=== PATIENT | male | born 1960 | race African-American/Black ===

== ENCOUNTER 2017-03-16 20:44 | Emergency (ER) | payer OTHER ==
[~2017-03-16] VITALS: Ht 177.8 cm; Wt 98.8 kg
[~2017-03-16 20:44] MED LIST: APRE1TAB3 PO; ZITH250T PO
[2017-03-16 20:51] VITALS: BP 141/76; PULSE 62; RESP 12; TEMP 97.8; O2SAT 97
[2017-03-16 21:06] VITALS: BP 141/76; PULSE 62; RESP 18; TEMP 97.8; O2SAT 98
[2017-03-16] MEDS ORDERED: APRE1TAB3 (21:06)
[2017-03-16] MEDS ORDERED: LORazepam 2 MG/ML VIAL IV PUSH ONE (21:30)
[2017-03-16] MEDS ORDERED: SODIUM CHLOR 0.9% 1000 ML INJ 1,000 ML IV SCH (21:33)
--- NOTE | 2017-03-16 21:40 | PD ---
HPI Chief Complaint: GI Complaint Time Seen by Provider: 21:20 Travel History International Travel<30 days: No Contact w/Intl Traveler<30days: No Traveled to known affect area: No History of Present Illness HPI The patient is a 56-year-old male that complains of bilateral lower quadrant pain since Wednesday evening. The patient thought he may have had a low-grade fever on Wednesday but none since. He denies any diarrhea, vomiting but does have nausea. He still has his gallbladder but he has had an appendectomy and right inguinal hernia repair. PFSH Past Medical History Hx Anticoagulant Therapy: No Asthma: Yes (CHILDHOOD) Blood Disorders: No Anxiety: Yes Heart Rhythm Problems: No Cancer: No Cardiovascular Problems: Yes (CHEST PAIN) High Cholesterol: Yes Chemotherapy: No Chest Pain: Yes (2008, STRESSTEST NEGATIVE THEN) Congestive Heart Failure: No COPD: No Diabetes: No Diminished Hearing: No GERD: Yes Hypertension: No Immune Disorder: Yes (psorasis) Musculoskeletal: No Neurologic: No Immunizations Current: Yes Myocardial Infarction: No Pneumonia: Yes (BRONCHIAL) Radiation Therapy: No Sleep Apnea: No Thyroid Disease: No Tetanus Vaccination: > 5 Years Influenza Vaccination: No Past Surgical History Appendectomy: Yes Coronary Artery Bypass Graft: No Genitourinary Surgery: Yes (TESTICULAR) Thoracic Surgery: Yes Other Surgery: Yes (appendix, testicular ) Social History Alcohol Use: Yes (OCCASIONALLY) Tobacco Use: No Substance Use: No (not recently in last year) Allergies-Medications (Allergen,Severity, Reaction): Coded Allergies: Ampicillin (Verified Allergy, Severe, HIVES, 03/16/17) Reported Meds & Prescriptions Reported Meds & Active Scripts Active Lortab (Hydrocodone-Acetaminophen) 5-325 Mg Tab 1 Tab PO Q6H PRN Phenergan (Promethazine HCl) 25 Mg Tab 25 Mg PO Q6H PRN Cipro (Ciprofloxacin HCl) 500 Mg Tab 500 Mg PO BID 10 Days Flagyl (Metronidazole) 500 Mg Tab 500 Mg PO TID 10 Days Reported Otezla (Apremilast) 30 Mg Tab Review of Systems Except as stated in HPI: all other systems reviewed are Neg Physical Exam Narrative GENERAL: The patient is alert, oriented 3 in moderate apparent distress with his bilateral lower quadrant abdominal pain. His blood pressure is 121/76 but the rest the vital signs are normal. SKIN: Focused skin assessment warm/dry. HEAD: Atraumatic. Normocephalic. EYES: Pupils equal and round. No scleral icterus. No injection or drainage. ENT: No nasal bleeding or discharge. Mucous membranes pink and moist. NECK: Trachea midline. No JVD. CARDIOVASCULAR: Regular rate and rhythm. No murmur appreciated. RESPIRATORY: No accessory muscle use. Clear to auscultation. Breath sounds equal bilaterally. GASTROINTESTINAL: Abdomen soft, with tenderness to direct palpation in the bilateral lower quadrants, nondistended. Hepatic and splenic margins not palpable. No guarding or rebound is present. MUSCULOSKELETAL: No obvious deformities. No clubbing. No cyanosis. No edema. NEUROLOGICAL: Awake and alert. No obvious cranial nerve deficits. Motor grossly within normal limits. Normal speech. PSYCHIATRIC: Appropriate mood and affect; insight and judgment normal. Data Data Last Documented VS Vital Signs Date Time Temp Pulse Resp B/P Pulse Ox O2 Delivery O2 Flow Rate FiO2 03/16/17 22:51 63 18 136/76 97 Room Air 03/16/17 21:06 97.8 Orders Lorazepam Inj (Ativan Inj) (03/16/17 21:30) Complete Blood Count With Diff (03/16/17 21:33) Comprehensive Metabolic Panel (03/16/17 21:33) Lipase (03/16/17 21:33) Urinalysis - C+S If Indicated (03/16/17 21:33) Ct Abd/Pel W Iv Contrast(Rout) (03/16/17 21:33) Iv Access Insert/Monitor (03/16/17 21:33) Ecg Monitoring (03/16/17 21:33) Oximetry (03/16/17 21:33) Morphine Inj (Morphine Inj) (03/16/17 21:45) Ondansetron Inj (Zofran Inj) (03/16/17 21:45) Sodium Chlor 0.9% 1000 Ml Inj (Ns 1000 M (03/16/17 21:33) Sodium Chloride 0.9% Flush (Ns Flush) (03/16/17 21:45) Iohexol 350 Inj (Omnipaque 350 Inj) (03/16/17 23:11) Labs Laboratory Tests Test 03/16/17 03/16/17 21:55 21:57 White Blood Count 6.1 TH/MM3 Red Blood Count 4.73 MIL/MM3 Hemoglobin 14.1 GM/DL Hematocrit 42.7 % Mean Corpuscular Volume 90.4 FL Mean Corpuscular Hemoglobin 29.9 PG Mean Corpuscular Hemoglobin 33.1 % Concent Red Cell Distribution Width 12.5 % Platelet Count 154 TH/MM3 Mean Platelet Volume 11.2 FL Neutrophils (%) (Auto) 54.7 % Lymphocytes (%) (Auto) 31.7 % Monocytes (%) (Auto) 9.0 % Eosinophils (%) (Auto) 3.8 % Basophils (%) (Auto) 0.8 % Neutrophils # (Auto) 3.4 TH/MM3 Lymphocytes # (Auto) 1.9 TH/MM3 Monocytes # (Auto) 0.6 TH/MM3 Eosinophils # (Auto) 0.2 TH/MM3 Basophils # (Auto) 0.0 TH/MM3 CBC Comment DIFF FINAL Differential Comment Sodium Level 143 MEQ/L Potassium Level 4.1 MEQ/L Chloride Level 107 MEQ/L Carbon Dioxide Level 28.9 MEQ/L Anion Gap 7 MEQ/L Blood Urea Nitrogen 18 MG/DL Creatinine 1.30 MG/DL Estimat Glomerular Filtration 69 ML/MIN Rate Random Glucose 97 MG/DL Calcium Level 9.2 MG/DL Total Bilirubin 0.3 MG/DL Aspartate Amino Transf 27 U/L (AST/SGOT) Alanine Aminotransferase 26 U/L (ALT/SGPT) Alkaline Phosphatase 99 U/L Total Protein 7.4 GM/DL Albumin 3.6 GM/DL Lipase 158 U/L Urine Color YELLOW Urine Turbidity CLEAR Urine pH 6.0 Urine Specific [place] 1.027 Urine Protein TRACE mg/dL Urine Glucose (UA) NEG mg/dL Urine Ketones TRACE mg/dL Urine Occult Blood NEG Urine Nitrite NEG Urine Bilirubin NEG Urine Leukocyte Esterase NEG Urine RBC 0-3 /hpf Urine WBC 0-2 /hpf Urine Squamous Epithelial 0-5 /hpf Cells Urine Mucus MOD /lpf Microscopic Urinalysis Comment CULT NOT INDICATED MDM Medical Decision Making Medical Screen Exam Complete: Yes Emergency Medical Condition: Yes Medical Record Reviewed: Yes Interpretation(s) The CBC is normal. The complete metabolic profile shows a GFR of 69 but is otherwise normal. The lipase is normal. The urine shows specific gravity 1.027 with trace ketones but is otherwise normal and culture is not indicated. Differential Diagnosis Colitis, diverticulitis, gastroenteritis, electrolyte disorder, dehydration, renal insufficiency Narrative Course It is now 1112 and the patient has only intermittent pain and no nausea. Diagnosis Primary Impression: Ileitis, terminal Additional Impression: Liver lesion Additional Instructions: As we discussed, do not drink alcohol with Flagyl. Do not drink alcohol or drive with the Phenergan or Lortab 5 either. All of with your primary care physician. Remember about the lesion we discussed on your liver, you need to have an MRI repeated through your primary care physician about this. Med/Other Pt SpecificInfo: Prescription(s) given Scripts Hydrocodone-Acetaminophen (Lortab)5-325 Mg Tab1 Tab PO Q6H PRN (PAIN) #15 TAB Ref 0 Prov:Juan Nicole MD 03/16/17 Promethazine (Phenergan)25 Mg Tab25 Mg PO Q6H PRN (Nausea/Vomiting) #33 TAB Ref 0 Prov:Juan Nicole MD 03/16/17 Ciprofloxacin (Cipro)500 Mg Crb046 Mg PO BID 10 Days Ref 0 Prov:Juan Nicole MD 03/16/17 Metronidazole (Flagyl)500 Mg [id number] Mg PO TID 10 Days Ref 0 Prov:Juan Nicole MD 03/16/17 Disposition: 01 DISCHARGE HOME Condition: Stable Juan Nicole MD March 16, 2017 21:40
[2017-03-16] MEDS ORDERED: MORPHINE SULFATE 4 MG/ML INJ IV PUSH ONE (21:45)
[2017-03-16] MEDS ORDERED: ONDANSETRON HCL 4 MG/2 ML VIAL IVP ONE (21:45)
[2017-03-16] MEDS ORDERED: SODIUM CHLORIDE 0.9% FLUSH 10 ML FLUSH IV FLUSH PRN (21:45)
[2017-03-16 21:55] VITALS: RESP 18; O2SAT 98
[2017-03-16 22:10] LABS: AUTOMATED NEUTROPHIL # 3.4 TH/MM3 (1.8-7.7); BASOPHIL % 0.8 % (0.0-2.0); EOSINOPHIL # 0.2 TH/MM3 (0-0.4); EOSINOPHIL % 3.8 % (0.0-4.0); HEMATOCRIT 42.7 % (39.0-51.0); HEMO FLAGS DIFF FINAL; LYMPH % 31.7 % (9.0-44.0); LYMPHOCYTE # 1.9 TH/MM3 (1.0-4.8); MEAN CELL VOLUME 90.4 FL (80.0-100.0); MEAN CORPUSCULAR HEMOGLOBIN 29.9 PG (27.0-34.0); MEAN CORPUSCULAR HGB CONC 33.1 % (32.0-36.0); NEUT % 54.7 % (16.0-70.0); PLATELET COUNT 154 TH/MM3 (150-450); RED BLOOD COUNT 4.73 MIL/MM3 (4.50-5.90); RED CELL DISTRIBUTION WIDTH 12.5 % (11.6-17.2); WHITE BLOOD COUNT 6.1 TH/MM3 (4.0-11.0)
[2017-03-16 22:32] LABS: CHLORIDE 107 MEQ/L (98-107); POTASSIUM 4.1 MEQ/L (3.5-5.1); SODIUM (NA) 143 MEQ/L (136-145)
[2017-03-16 22:37] LABS: ANION GAP 7 MEQ/L (5-15); BICARBONATE 28.9 MEQ/L (21.0-32.0); BLOOD UREA NITROGEN 18 MG/DL (7-18)
[2017-03-16 22:39] LABS: ALT (GPT) 26 U/L (12-78); AST (GOT) 27 U/L (15-37)
[2017-03-16 22:40] LABS: GLOMERULAR FILTRATION RATE 69 ML/MIN (>89)
[2017-03-16 22:41] LABS: TOTAL BILIRUBIN ADULT 0.3 MG/DL (0.2-1.0)
[2017-03-16 22:42] LABS: ALKALINE PHOSPHATASE 99 U/L (45-117)
[2017-03-16 22:47] LABS: BLOOD, URINE NEG (NEG); GLUCOSE,URINE NEG (NEG); KETONE, URINE TRACE mg/dL (NEG); NITRITE,URINE NEG (NEG)
[2017-03-16 22:51] VITALS: BP 136/76; PULSE 63; RESP 18; O2SAT 97
[2017-03-16 22:52] LABS: URINE COLOR YELLOW (YELLW/STRAW)
[2017-03-16 22:53] LABS: COMMENT (UR) CULT NOT INDICATED; CULTURE IF INDICATED CULT NOT INDICATED; MUCUS URINE MOD /lpf (OCC); RBC, URINE 0-3 /hpf (0-3); SQUAMOUS EPITHELIAL CELL URINE 0-5 /hpf (0-5); WBC, URINE 0-2 /hpf (0-5)
[2017-03-16] MEDS ORDERED: IOHEXOL 350 MG/ML 10 ML VIAL (for RAD DIAG) IV ONE (23:11)
--- NOTE | 2017-03-16 23:17 | RADHPO ---
EXAM DATE/TIME: 03/16/2017 22:13 [facility] COMPARISON: No previous studies available for comparison. INDICATIONS : Right lower quadrant pain. IV CONTRAST: 100 cc Omnipaque 350 (iohexol) IV ORAL CONTRAST: No oral contrast ingested. RADIATION DOSE: 17.04 CTDIvol (mGy) MEDICAL HISTORY : Gastroesophageal reflux disease. SURGICAL HISTORY : Appendectomy. Testicular. ENCOUNTER: Initial ACUITY: 1 day PAIN SCALE: 7/10 LOCATION: Right lower quadrant TECHNIQUE: Volumetric scanning of the abdomen and pelvis was performed. Using automated exposure control and ad justment of the mA and/or kV according to patient size, radiation dose was kept as low as reasonably achievable to obtain optimal diagnostic quality images. FINDINGS: LOWER LUNGS: A tiny calcified granuloma within the left lung base. Main lung bases are clear. LIVER: There is a low density lesion seen involving segment 7. This is 3.4 cm in size. Hounsfield units are 37. The remaining liver is unremarkable. Portal vein is patent. Gallbladder is decompressed. No stone s observed. No ductal dilatation. SPLEEN: Normal size without lesion. PANCREAS: Within normal limits. KIDNEYS: Normal in size and shape. There is no mass, stone or hydronephrosis. ADRENAL GLANDS: Within normal limits. VASCULAR: There is no aortic aneurysm. BOWEL/MESENTERY: There is mild wall thickening and mild stranding of the adjacent mesentery involving the terminal ile um. A few tiny ileocolic lymph nodes are also noted. The remaining bowel structures are unremarkable. No free air or free fluid. Stomach is normal. ABDOMINAL WALL: Within normal limits. RETROPERITONEUM: There is no lymphadenopathy. BLADDER: No wall thickening or mass. REPRODUCTIVE: Within normal limits. INGUINAL: There is no lymphadenopathy or hernia. MUSCULOSKELETAL: Within normal limits for patient age. CONCLUSION: 1. Mild inflammatory process involving the terminal ileum. No abscess, perforation, or obstruction. 2. 3.4 cm nonspecific lesion involving the right lobe of the liver. CT characteristics are not consis tent with a simple cyst. An outpatient followup MRI of the abdomen is suggested. Pedro Lind Jr., MD on March 16, 2017 at 23:12 Board Certified Radiologist. This report was verified electronically.
[2017-03-16] MEDS ORDERED: PROM25TA5 PO (23:56)
[2017-03-16] MEDS ORDERED: HYDR-3533 PO (23:56)
[2017-03-16] MEDS ORDERED: METR-1 PO (23:56)
[2017-03-16] MEDS ORDERED: CIPR-9 PO (23:56)
[2017-03-17 00:05] VITALS: BP 134/74; PULSE 62; RESP 18; O2SAT 97
[2017-03-17] MEDS ORDERED: CIPROFLOXACIN 500 MG TAB PO ONE (00:15)
[2017-03-17] MEDS ORDERED: metroNIDAZOLE 500 MG TAB PO ONE (00:15)
[2017-03-17] MEDS ORDERED: PROMETHAZINE HCL 25 MG TAB PO ONE (00:30)
[2017-03-17] MEDS ORDERED: ACETAMINOPHEN/HYDROcodone 325 MG/5 MG TAB PO ONE (00:30)
== END 2017-03-17 00:42 | disposition home or self-care (01) ==
LOC: PHED 20:44
DX: K50.00 Crohn's disease of small intestine without complications (principal); K76.9 Liver disease, unspecified; E78.00 Pure hypercholesterolemia, unspecified; K21.9 Gastro-esophageal reflux disease without esophagitis
CPT/HCPCS: 74177; 80053; 81001; 83690; 85025; 96361; 96374; 96375; 99284; J2270; J2405; J7030; Q0169; Q9967

== ENCOUNTER 2017-12-25 17:46 | Emergency (ER) | payer OTHER ==
[~2017-12-25] VITALS: Ht 177.8 cm; Wt 98.7 kg
[~2017-12-25 17:46] MED LIST changes: +APRE1TAB3; -APRE1TAB3 PO; +CIPR-9 PO; +HYDR-3533 PO; +METR-1 PO; +PROM25TA5 PO; -ZITH250T PO
[2017-12-25 18:12] VITALS: BP 108/69; PULSE 63; RESP 16; TEMP 98.7; O2SAT 97
--- NOTE | 2017-12-25 19:52 | PD ---
HPI Chief Complaint: Abdominal Pain Time Seen by Provider: 19:52 Travel History International Travel<30 days: No Contact w/Intl Traveler<30days: No Traveled to known affect area: No History of Present Illness HPI 57-year-old male came to the emergency room with history of diarrhea alternating with constipation and nausea and vomiting for past 4 weeks. Patient says that he has seen his primary care who has given him Bentyl for IBS. Patient was in the emergency room one year ago when apparently he was diagnosed with IBS and the primary care has continued with the diagnosis. However patient says that the Bentyl is not helping. His last episode of diarrhea was yesterday. Today he has not had any diarrhea or vomiting. Vital signs are stable. He has slight abdominal discomfort. That is more generalized. It gets worse just before he has a bowel movement. The stool is mostly watery when he has diarrhea and nonbloody. Patient had a colonoscopy 2 years ago and at that time he was told everything was fine. PFSH Past Medical History Narrative Medical List of his past medical, surgical, social and family history is reviewed from the nursing note. Hx Anticoagulant Therapy: No Asthma: Yes (CHILDHOOD) Blood Disorders: No Anxiety: Yes Heart Rhythm Problems: No Cancer: No Cardiovascular Problems: Yes (CHEST PAIN) High Cholesterol: Yes Chemotherapy: No Chest Pain: Yes (2008, STRESSTEST NEGATIVE THEN) Congestive Heart Failure: No COPD: No Diabetes: No Diminished Hearing: No GERD: Yes Hypertension: No Immune Disorder: Yes (psorasis) Musculoskeletal: No Neurologic: No Immunizations Current: Yes Myocardial Infarction: No Pneumonia: Yes (BRONCHIAL) Radiation Therapy: No Sleep Apnea: No Thyroid Disease: No Past Surgical History Appendectomy: Yes Coronary Artery Bypass Graft: No Genitourinary Surgery: Yes (TESTICULAR) Thoracic Surgery: Yes Other Surgery: Yes (appendix, testicular ) Social History Alcohol Use: Yes (OCCASIONALLY) Tobacco Use: No Substance Use: No (not recently in last year) Allergies-Medications (Allergen,Severity, Reaction): Coded Allergies: ampicillin (Unverified Allergy, Severe, HIVES, 12/25/17) penicillin G (Verified Allergy, Intermediate, hives, 12/25/17) Comments List of his allergies reviewed from the nursing note. Reported Meds & Prescriptions Reported Meds & Active Scripts Active Zofran Odt (Ondansetron Odt) 4 Mg Tab 4 Mg SL Q6HR PRN Narrative Medication List of his home medications reviewed from the nursing note. Review of Systems Except as stated in HPI: all other systems reviewed are Neg Gastrointestinal: Positive: Nausea, Vomiting, Diarrhea Physical Exam Narrative GENERAL: Awake, alert, no obvious distress, anxious SKIN: Focused skin assessment warm/dry. HEAD: Atraumatic. Normocephalic. EYES: Pupils equal and round. No scleral icterus. No injection or drainage. ENT: No nasal bleeding or discharge. Mucous membranes pink and moist. NECK: Trachea midline. No JVD. CARDIOVASCULAR: Regular rate and rhythm. No murmur appreciated. RESPIRATORY: No accessory muscle use. Clear to auscultation. Breath sounds equal bilaterally. GASTROINTESTINAL: Abdomen soft, non-tender, nondistended. Hepatic and splenic margins not palpable. MUSCULOSKELETAL: No obvious deformities. No clubbing. No cyanosis. No edema. NEUROLOGICAL: Awake and alert. No obvious cranial nerve deficits. Motor grossly within normal limits. Normal speech. PSYCHIATRIC: Appropriate mood and affect; insight and judgment normal. Data Data Last Documented VS Vital Signs Date Time Temp Pulse Resp B/P (MAP) Pulse Ox O2 Delivery O2 Flow Rate FiO2 12/25/17 21:33 99 12/25/17 19:55 66 18 Room Air 12/25/17 18:12 98.7 Orders Orders Complete Blood Count With Diff (12/25/17 20:02) Comprehensive Metabolic Panel (12/25/17 20:02) Ct Abd/Pel W/O Iv Contrast (12/25/17 ) Ed Discharge Order (12/25/17 21:04) Labs Laboratory Tests Test 12/25/17 20:30 White Blood Count 3.7 TH/MM3 Red Blood Count 4.60 MIL/MM3 Hemoglobin 13.8 GM/DL Hematocrit 40.3 % Mean Corpuscular Volume 87.5 FL Mean Corpuscular Hemoglobin 29.9 PG Mean Corpuscular Hemoglobin Concent 34.1 % Red Cell Distribution Width 13.0 % Platelet Count 148 TH/MM3 Mean Platelet Volume 10.1 FL Neutrophils (%) (Auto) 64.3 % Lymphocytes (%) (Auto) 22.9 % Monocytes (%) (Auto) 10.0 % Eosinophils (%) (Auto) 2.2 % Basophils (%) (Auto) 0.6 % Neutrophils # (Auto) 2.3 TH/MM3 Lymphocytes # (Auto) 0.8 TH/MM3 Monocytes # (Auto) 0.4 TH/MM3 Eosinophils # (Auto) 0.1 TH/MM3 Basophils # (Auto) 0.0 TH/MM3 CBC Comment DIFF FINAL Differential Comment Blood Urea Nitrogen 16 MG/DL Creatinine 1.20 MG/DL Random Glucose 86 MG/DL Total Protein 7.1 GM/DL Albumin 3.5 GM/DL Calcium Level 8.6 MG/DL Alkaline Phosphatase 93 U/L Aspartate Amino Transf (AST/SGOT) 31 U/L Alanine Aminotransferase (ALT/SGPT) 25 U/L Total Bilirubin 0.4 MG/DL Sodium Level 139 MEQ/L Potassium Level 3.8 MEQ/L Chloride Level 105 MEQ/L Carbon Dioxide Level 28.3 MEQ/L Anion Gap 6 MEQ/L Estimat Glomerular Filtration Rate 75 ML/MIN MDM Medical Decision Making Medical Screen Exam Complete: Yes Emergency Medical Condition: Yes Medical Record Reviewed: Yes Differential Diagnosis Inflammatory bowel disease, colitis Narrative Course A 20 6 PM I looked at his medical record from about one year ago. There was a CAT scan done which showed terminal ileitis and he was asked to get an outpatient MRI. This finding does not coincide with IBS. I went back to discuss this with the patient that if he ever had this addressed by his primary care. He said that he had given this discharge instruction to his primary care at which point apparently his primary care had told him the diagnosis was IBS and gave him Bentyl. He has not had an MRI or a GI follow-up dressing this. I have ordered blood test and a repeat CAT scan today. Awaiting for the results of those tests. 9:02 PM the test results of back. Patient has some leukopenia but otherwise test results are within normal limits. CT scan shows a hyperechoic mass in the liver which was similar to the one seen one year ago. MRI is recommended. I' ll discharge him home. Procedures EKG Prior to Arrival: No Diagnosis Primary Impression: Chronic diarrhea Additional Impressions: Vomiting Qualified Codes: R11.11 - Vomiting without nausea Liver mass Referrals: Primary Care Physician Additional Instructions: Please return to the ER if condition worsens or any other new concerns. Otherwise follow-up with your primary care and have him refer you to a GI specialist. You do need an MRI of her abdomen as an outpatient which can be ordered by her primary care. Med/Other Pt SpecificInfo: Prescription(s) given Scripts Ondansetron Odt (Zofran Odt) 4 Mg Tab 4 MG SL Q6HR Y for Nausea/Vomiting, #15 TAB 0 Refills Prov: Ezequiel Apodaca MD 12/25/17 Disposition: 01 DISCHARGE HOME Condition: Stable Ezequiel Apodaca MD Dec 25, 2017 19:52
[2017-12-25 19:55] VITALS: BP 110/70; PULSE 66; RESP 18; O2SAT 97
--- NOTE | 2017-12-25 20:32 | RADRPT ---
EXAM DATE/TIME: 12/25/2017 20:13 [facility] COMPARISON: CT ABDOMEN & PELVIS W CONTRAST, March 16, 2017, 22:13. INDICATIONS : Abdomen pain, nausea, vomiting, bloating, for 1 week ORAL CONTRAST: No oral contrast ingested. RADIATION DOSE: 19.02 CTDIvol (mGy) MEDICAL HISTORY : Cardiovascular disease. Gastroesophageal reflux disease. SURGICAL HISTORY : Appendectomy. ENCOUNTER: Initial ACUITY: 1 week PAIN SCALE: 7/10 LOCATION: diffuse abdomen TECHNIQUE: Volumetric scanning of the abdomen and pelvis was performed. Using automated exposure control and ad justment of the mA and/or kV according to patient size, radiation dose was kept as low as reasonably achievable to obtain optimal diagnostic quality images. DICOM format image data is available electro nically for review and comparison. FINDINGS: LOWER LUNGS: The visualized lower lungs are clear. LIVER: There is a stable low-density liver mass at the liver dome measuring 3.2 x 2.7 cm. Hounsfield measure ments are in the mid 30s. There is no dilation of the biliary tree. No calcified gallstones. SPLEEN: Normal size without lesion. PANCREAS: Within normal limits. KIDNEYS: Normal in size and shape. There is no mass, stone, or hydronephrosis. ADRENAL GLANDS: Within normal limits. VASCULAR: There is no aortic aneurysm. There is mild atherosclerotic disease. BOWEL/MESENTERY: The stomach, small bowel, and colon demonstrate no acute abnormality. There is no free intraperitone al air or fluid. ABDOMINAL WALL: Within normal limits. RETROPERITONEUM: There is no lymphadenopathy. BLADDER: No wall thickening or mass. REPRODUCTIVE: Within normal limits. INGUINAL: There is no lymphadenopathy or hernia. MUSCULOSKELETAL: There are mild degenerative changes of the lumbar spine. CONCLUSION: 1. No acute finding is identified within the abdomen or pelvis to explain the clinical symptoms. 2. There is a stable 3.2 cm liver lesion which does not meet criteria for a cyst. As described previo usly, this should undergo further characterization with liver protocol MRI with and without intraveno us contrast on an outpatient elective basis. Mahesh Vallecillo MD on December 25, 2017 at 20:27 Board Certified Radiologist. This report was verified electronically.
[2017-12-25 20:42] LABS: AUTOMATED NEUTROPHIL # 2.3 TH/MM3 (1.8-7.7); BASOPHIL % 0.6 % (0.0-2.0); EOSINOPHIL # 0.1 TH/MM3 (0-0.4); EOSINOPHIL % 2.2 % (0.0-4.0); HEMATOCRIT 40.3 % (39.0-51.0); HEMOGLOBIN 13.8 GM/DL (13.0-17.0); LYMPH % 22.9 % (9.0-44.0); LYMPHOCYTE # 0.8 TH/MM3 (1.0-4.8); MEAN CELL VOLUME 87.5 FL (80.0-100.0); MEAN CORPUSCULAR HEMOGLOBIN 29.9 PG (27.0-34.0); MEAN CORPUSCULAR HGB CONC 34.1 % (32.0-36.0); MEAN PLATELET VOLUME 10.1 FL (7.0-11.0); MONOCYTE # 0.4 TH/MM3 (0-0.9); NEUT % 64.3 % (16.0-70.0); PLATELET COUNT 148 TH/MM3 (150-450); WHITE BLOOD COUNT 3.7 TH/MM3 (4.0-11.0)
[2017-12-25 20:48] LABS: CHLORIDE 105 MEQ/L (98-107); SODIUM (NA) 139 MEQ/L (136-145)
[2017-12-25 20:51] LABS: CALCIUM 8.6 MG/DL (8.5-10.1)
[2017-12-25 20:52] LABS: ALBUMIN 3.5 GM/DL (3.4-5.0); BICARBONATE 28.3 MEQ/L (21.0-32.0); BLOOD UREA NITROGEN 16 MG/DL (7-18); GLUCOSE,RANDOM 86 MG/DL (74-106)
[2017-12-25 20:55] LABS: ALT (GPT) 25 U/L (12-78); AST (GOT) 31 U/L (15-37); GLOMERULAR FILTRATION RATE 75 ML/MIN (>89)
[2017-12-25 20:57] LABS: TOTAL BILIRUBIN ADULT 0.4 MG/DL (0.2-1.0); TOTAL PROTEIN 7.1 GM/DL (6.4-8.2)
[2017-12-25 20:58] LABS: ALKALINE PHOSPHATASE 93 U/L (45-117)
[2017-12-25] MEDS ORDERED: ZOFR4TAB3 SL (21:04)
== END 2017-12-25 21:36 | disposition home or self-care (01) ==
LOC: PHED 17:46
DX: K52.9 Noninfective gastroenteritis and colitis, unspecified (principal); R11.2 Nausea with vomiting, unspecified; R16.0 Hepatomegaly, not elsewhere classified; K21.9 Gastro-esophageal reflux disease without esophagitis; Z88.0 Allergy status to penicillin
CPT/HCPCS: 74176; 80053; 85025; 99283

== ENCOUNTER 2018-10-28 20:31 | Observation (INO) ==
[2018-10-28] MEDS ORDERED: Sod Chloride 0.9% Inj 1,000 ML IV.SIG SCH (20:45)
--- NOTE | 2018-10-28 20:52 | ED ---
HPI General Chief Complaint: Altered Mental Status Stated Complaint: Altered mental status Time Seen by Provider: 10/28/18 20:33 Source: patient and EMS Mode of arrival: EMS Limitations: no limitations History of Present Illness HPI narrative: Patient is a 57-year-old male presenting to emerge department for evaluation of lightheadedness, near syncope. Patient was at a [place] [employer] party when he appeared to have a syncopal episode. When EMS arrived on scene, patient's GCS was 15. Patient reports feeling nauseated and lightheaded, he denies any chest pain, shortness of breath, abdominal pain. He reports a nonproductive cough for a few days but denies any fevers, chills. Patient denies any significant past medical history, he has had no alcohol intake this evening, he denies any illicit drug use. Symptom onset was sudden, symptoms are moderate, unknown exacerbating symptoms. MD complaint: Reports decreased responsiveness Onset (ago): minute(s) Timing confirmed by: spouse Severity: moderate Consistency of symptoms: unknown Associated symptoms: Reports nausea/vomiting and syncope Related Data Home Medications Medication Instructions Recorded Confirmed azithromycin [Zithromax Z-Rick] 250 mg PO DAILY 10/28/18 10/28/18 benzonatate [Tessalon Perles] 100 mg PO TID PRN 10/28/18 10/28/18 Allergies Allergy/AdvReac Type Severity Reaction Status Date / Time ampicillin Allergy Severe HIVES Verified 10/28/18 20:46 penicillin G Allergy Intermediate hives Verified 12/25/17 19:54 Review of Systems ROS: all other systems reviewed are negative [facility] Medical History Medical History Appendicitis (Acute) Arthritis (Acute) Psoriasiform eczema (Acute) Psoriasis (Acute) Surgical History Surgical History History of testicular surgery (Acute) Social History Social History Second Hand Smoke Exposure: No Smoking Status: Never smoker How Often Do You Have a Drink Containing Alcohol: 4 or more times a week Recent Travel in [facility] within the Last 8 Weeks: No Recent Out of Country Travel within the Last 8 Weeks: No Immunization History Tetanus Immunization: Unsure Exam Narrative Exam Narrative: GENERAL: Well-developed, well-nourished, alert -Slov[place] male. Presenting in no acute distress. SKIN: Focused skin assessment warm/dry. HEAD: Atraumatic. Normocephalic. EYES: Pupils equal and round. No scleral icterus. No injection or drainage. ENT: No nasal bleeding or discharge. Mucous membranes pink and moist. NECK: Trachea midline. No JVD. CARDIOVASCULAR: Bradycardic. No murmur appreciated. RESPIRATORY: No accessory muscle use. Clear to auscultation. Breath sounds equal bilaterally. GASTROINTESTINAL: Abdomen soft, non-tender, nondistended. Hepatic and splenic margins not palpable. MUSCULOSKELETAL: No obvious deformities. No clubbing. No cyanosis. No edema. NEUROLOGICAL: Awake and alert, oriented x3. No obvious cranial nerve deficits. Motor grossly within normal limits. Normal speech. PSYCHIATRIC: Appropriate mood and flat affect; insight and judgment normal. Course Initial Documented Vital Signs Temperature 97.8 F 10/28/18 20:35 Pulse Rate 64 10/28/18 20:35 Respiratory Rate 16 10/28/18 20:35 Pulse Oximetry 98 10/28/18 20:35 Last Documented Vital Signs Temperature 97.8 F 10/28/18 20:35 Pulse Rate 61 10/28/18 20:41 Respiratory Rate 16 10/28/18 20:41 Blood Pressure 164/81 H 10/28/18 20:41 Pulse Oximetry 99 10/28/18 20:48 Medical Decision Making MDM Narrative Medical decision making narrative: Presented for evaluation after near syncopal episode. Labs and imaging ordered and pending. 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 Initial EKG shows sinus bradycardia with a rate of 56, this was reviewed by my attending physician. Labs reviewed, troponin 0 0.05, labs are otherwise unremarkable. CT scan of the brain shows no acute findings, chest x-ray with no acute disease. states that patient was just diagnosed with high cholesterol, he is not currently on any medications for this. This time patient will be admitted for observation to trend cardiac enzymes, further workup for near syncope. Discussed with my attending physician. Discussed with Dr. Zarco who accepted admit, admit orders placed. Patient's vital signs remained stable in the emergency department. Medical Screen Exam Complete: Yes Emergency Medical Condition: Yes Differential Diagnosis Differential Diagnosis: Cardiac arrhythmia versus metabolic abnormality versus TIA versus seizure versus other Medical Records Medical records reviewed: Yes I reviewed the patient's medical records. Lab Data Lab results reviewed: Yes I reviewed the patient's lab results. Result diagrams: 10/28/18 21:38 10/28/18 20:40 Lab Results 10/28/18 10/28/18 Range/Units 20:40 21:38 WBC 7.2 (4.0-11.0) th/mm3 RBC 4.33 L (4.50-5.90) mil/mm3 Hgb 13.6 (13.0-17.0) gm/dL Hct 39.5 (39.0-51.0) % MCV 91.1 (80.0-100.0) fL MCH 31.3 (27.0-34.0) pg MCHC 34.4 (32.0-36.0) % RDW 13.7 (11.6-17.2) % Plt Count 145 L (150-450) th/mm3 MPV 11.0 (7.0-11.0) fL Neut % (Auto) 67.2 (16.0-70.0) % Lymph % (Auto) 20.9 (9.0-44.0) % [place] % (Auto) 9.4 H (0.0-8.0) % Eos % (Auto) 1.9 (0.0-4.0) % Baso % (Auto) 0.6 (0.0-2.0) % Neut # (Auto) 4.8 (1.8-7.7) th/mm3 Lymph # (Auto) 1.5 (1.0-4.8) th/mm3 [place] # (Auto) 0.7 (0.0-0.9) th/mm3 Eos # (Auto) 0.1 (0.0-0.4) th/mm3 Baso # (Auto) 0.0 (0.0-0.2) th/mm3 WBC Differential . Differential Comment Auto diff final Sodium 140 (136-145) meq/L Potassium 3.8 (3.5-5.1) meq/L Chloride 107 (98-107) meq/L Carbon Dioxide 25.5 (21.0-32.0) meq/L Anion Gap 8 (5-15) meq/L BUN 15 (7-18) mg/dL Creatinine 1.32 H (0.60-1.30) mg/dL Estimated GFR 68 L (>89) mL/min Random Glucose 84 (74-106) mg/dL Calcium 9.1 (8.5-10.1) mg/dL Magnesium 2.1 (1.5-2.5) mg/dL Total Bilirubin 0.4 (0.2-1.0) mg/dL AST 34 (15-37) U/L ALT 44 (12-78) U/L Alkaline Phosphatase 97 (45-117) U/L Total Creatine Kinase 292 (39-308) U/L Troponin I 0.05 (0.02-0.05) ng/mL Total Protein 8.1 (6.4-8.2) g/dL Albumin 4.1 (3.4-5.0) g/dL Imaging Data Radiologist's impression: Chest X-Ray 10/28/18 20:40 CONCLUSION: No evidence of acute pulmonary disease. Head CT 10/28/18 20:40 CONCLUSION: 1. No acute intracranial abnormality. 2. Left maxillary sinus mucosal disease. . Discharge Plan Discharge Disposition Patient Disposition: ED Admit(ED Internal Use Only) Discharge Condition Condition: Stable Discharge Order Discharge Orders: ED Use Only Admit Order (Routine); Ordered 10/28/18 Ordered By: Delfina Bahena Discharge Details Diagnosis: Near syncope, Bradycardia Physicians Team ED Provider: Vicky Ascencio ED Midlevel Provider: Delfnia Bahena Primary Care Provider: Cirilo Sal Attending Provider: Lan Zarco Status ED Status: Admitted Observation Patient
--- NOTE | 2018-10-28 21:03 | CT ---
EXAM DATE: 10/28/2018 9:00 PM EST AGE/SEX: 57 years / Male INDICATIONS: Altered mental status. CLINICAL DATA: This is the patient's initial encounter. Patient reports that signs and symptoms have been present for 1 day and indicates a pain score of 0/10. MEDICAL/SURGICAL HISTORY: None. Appendectomy. Testicular surgery RADIATION DOSE: 56.35 CTDI (mGy) COMPARISON: No prior exams available for comparison. TECHNIQUE: CT of the head without contrast. Using automated exposure control and adjustment of the mA and/or kV according to patient size, radiation dose was kept as low as reasonably achievable to ob tain optimal diagnostic quality images. DICOM format image data is available electronically for revi ew and comparison. FINDINGS: Cerebrum: The ventricles are normal for age. No evidence of midline shift, mass lesion, hemorrhage o r acute infarction. No extraaxial fluid collections are seen. Posterior Fossa: The cerebellum and brainstem are intact. The 4th ventricle is midline. The cerebe llopontine angle is unremarkable. Extracranial: The visualized portion of the orbits is intact. Mucosal retention cyst in the inferior left maxillary sinus. Skull: The calvaria is intact. No evidence of skull fracture. CONCLUSION: 1. No acute intracranial abnormality. 2. Left maxillary sinus mucosal disease. . Electronically signed by: Brian Perez MD Board Certified Radiologist 10/28/2018 9:02 PM ZAID Abbasi
[2018-10-28 21:19] LABS: Alanine Aminotransferase 44 U/L (12-78); Albumin 4.1 g/dL (3.4-5.0); Anion Gap 8 meq/L (5-15); Aspartate Aminotransferase 34 U/L (15-37); Blood Urea Nitrogen 15 mg/dL (7-18); Calcium 9.1 mg/dL (8.5-10.1); Carbon Dioxide 25.5 meq/L (21.0-32.0); Chloride 107 meq/L (98-107); Glomerular Filtration Rate 68 mL/min (>89); Glucose,Random 84 mg/dL (74-106); Magnesium 2.1 mg/dL (1.5-2.5); Potassium 3.8 meq/L (3.5-5.1); Sodium 140 meq/L (136-145)
[2018-10-28 21:23] LABS: Alkaline Phosphatase 97 U/L (45-117); Creatine Kinase 292 U/L (39-308); Total Protein 8.1 g/dL (6.4-8.2); Troponin I 0.05 ng/mL (0.02-0.05)
--- NOTE | 2018-10-28 21:24 | XR ---
EXAM DATE: 10/28/2018 9:20 PM EST AGE/SEX: 57 years / Male INDICATIONS: Syncope. CLINICAL DATA: This is the patient's initial encounter. Patient reports that signs and symptoms have been present for 1 day and indicates a pain score of 0/10. MEDICAL/SURGICAL HISTORY: None. Appendectomy. COMPARISON: [facility], CHEST SINGLE AP, 03/17/2015. . FINDINGS: A single AP view of the chest demonstrates the lungs to be symmetrically aerated without evidence of mass, infiltrate or effusion. The cardiomediastinal contours are unremarkable. Osseous structures a re intact. CONCLUSION: No evidence of acute pulmonary disease. Electronically signed by: Mahesh Juarez MD Board Certified Radiologist 10/28/2018 9:23 PM EST
[2018-10-28 22:00] LABS: Baso % (Auto) 0.6 % (0.0-2.0); Eos # (Auto) 0.1 th/mm3 (0.0-0.4); Eos % (Auto) 1.9 % (0.0-4.0); Hematocrit 39.5 % (39.0-51.0); Hemoglobin 13.6 gm/dL (13.0-17.0); Lymph # (Auto) 1.5 th/mm3 (1.0-4.8); Lymph % (Auto) 20.9 % (9.0-44.0); Mean Corpuscular HGB Conc 34.4 % (32.0-36.0); Mean Corpuscular Hemoglobin 31.3 pg (27.0-34.0); Mean Corpuscular Volume 91.1 fL (80.0-100.0); Mono # (Auto) 0.7 th/mm3 (0.0-0.9); Mono % (Auto) 9.4 % (0.0-8.0); Neut # (Auto) 4.8 th/mm3 (1.8-7.7); Neut % (Auto) 67.2 % (16.0-70.0); Platelet Count 145 th/mm3 (150-450); Red Blood Count 4.33 mil/mm3 (4.50-5.90); Red Cell Distribution Width 13.7 % (11.6-17.2); White Blood Count 7.2 th/mm3 (4.0-11.0)
[2018-10-28 23:15] LABS: Bilirubin,Urine Negative (Negative); Clarity,Urine Clear (Clear); Color,Urine Yellow (Yellw/Straw); Glucose,Urine (UA) Negative (Negative); Leukocyte Esterase,Urine Negative (Negative); Mucus,Urine Few /lpf (Occasional); Nitrite,Urine Negative (Negative); Specific Gravity,Urine 1.018 (1.002-1.035)
[2018-10-29 06:10] LABS: Anion Gap 8 meq/L (5-15); Blood Urea Nitrogen 12 mg/dL (7-18); Calcium 8.7 mg/dL (8.5-10.1); Carbon Dioxide 26.5 meq/L (21.0-32.0); Chloride 109 meq/L (98-107); Glomerular Filtration Rate Greater Than 89 mL/min (>89); Glucose,Random 98 mg/dL (74-106); Potassium 3.5 meq/L (3.5-5.1); Sodium 143 meq/L (136-145)
[2018-10-29 06:14] LABS: Troponin I 0.04 ng/mL (0.02-0.05)
--- NOTE | 2018-10-29 08:26 | US ---
EXAM DATE: 10/29/2018 7:48 AM EST AGE/SEX: 57 years / Male INDICATIONS: Syncope. CLINICAL DATA: This is the patient's initial encounter. Patient reports that signs and symptoms have been present for 1 day and indicates a pain score of 0/10. MEDICAL/SURGICAL HISTORY: . Arthritis. Appendicitis. Eczema. Psoriasis. . Testicular surgery. COMPARISON: No prior exams available for comparison. VELOCITY PARAMETERS: ICA/CCA Ratio: Right 1.0 , Left 1.0 ICA: Right 88.7 cm/sec, Left 95.2 cm/sec CCA: Right 91.9 cm/sec, Left 94.3 cm/sec ECA: Right 101.6 cm/sec, Left 77.4 cm/sec Vertebral: Right 47.8 cm/sec antegrade, Left 49.0 cm/sec antegrade FINDINGS: Right Carotid: No significant plaque is visualized.The waveforms are within normal limits. Left Carotid: No significant plaque is visualized. The waveforms are within normal limits. Other: None. CONCLUSION: Negative carotid ultrasound examination. Electronically signed by: Mahesh Knowles MD Board Certified Radiologist 10/29/2018 8:24 AM EST
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
[2018-10-29] MEDS ORDERED: [UNRECOGNIZED DRUG - OTHER] TOPICAL SCH (13:00)
[2018-10-29] MEDS ORDERED: Benzonatate 100 MG Capsule PO PRN (16:10)
[2018-10-29] MEDS: Loratadine 10 MG Tablet PO SCH (16:56)
[2018-10-29 17:23] LABS: Folate 8.4 ng/mL (3.1-17.5); Thyroid Stimulating Hormone 3.03 uIU/mL (0.358-3.740)
[2018-10-29] MEDS ORDERED: Gadobutrol PF 10 MMOL/10 ML Vial (for RAD) IV.SIG ONE (17:31)
--- NOTE | 2018-10-29 17:44 | MR ---
EXAM DATE: 10/29/2018 5:37 PM EST AGE/SEX: 57 years / Male INDICATIONS: Confusion. Syncope. CLINICAL DATA: This is the patient's initial encounter. Patient reports that signs and symptoms have been present for 1 day and indicates a pain score of 0/10. MEDICAL/SURGICAL HISTORY: Hypercholesterolemia. Appendectomy. COMPARISON: No prior exams available for comparison. TECHNIQUE: Multiplanar, multisequence examination of the brain was performed without and with 9 ml Ga davist (gadobutrol) contrast as a single exam dose. FINDINGS: Cerebrum: The ventricles are normal for age. No evidence of midline shift, mass lesion, hemorrhage or acute infarction. No extraaxial fluid collections are seen. The pituitary gland and suprasellar cistern are normal in configuration. White Matter: No significant signal abnormalities are seen in the white matter. Posterior Fossa: The cerebellum and brainstem are intact. The 4th ventricle is midline. The cerebel lopontine angle is unremarkable. The cerebellar tonsils are normal in position. Diffusion Imaging: No focal areas of restricted diffusion are seen. No evidence of acute infarction . Extracranial: The visualized portions of the orbits are unremarkable. Mucus retention cyst formation is noted within the left maxillary sinus. Post Contrast: There is evidence of a venous angioma within the right frontal subcortical white amadou er. CONCLUSION: 1. No acute infarct, acute hemorrhage, midline shift or extra-axial fluid collection. 2. Venous angioma within the right frontal subcortical white matter. 3. Mucus retention cyst formation within left maxillary sinus. Electronically signed by: Norman Guaman MD Board Certified Radiologist 10/29/2018 5:43 PM EST
--- NOTE | 2018-10-29 22:48 | MG ---
cc: Vel Sellers MD EEG RECORD NUMBER: [id number] DESCRIPTION: 7-8 Hz posterior rhythm 20-40 microvolts followed by generalized slowing. Transition into stage I and stage II sleep characterized by spindle activity followed by brief arousals of normal wakefulness. Limited driving with photic stimulation. Single lead EKG showing sinus rhythm. INTERPRETATION: Normal awake sleep state. Clinical correlation. Vel Sellers MD MG/ct , 10:10 PM , 10:15 PM
--- NOTE | 2018-10-30 01:51 | ECHRPT ---
Indication: SYNCOPE CONCLUSIONS The left ventricular systolic function is normal with an estimated ejection fraction in the range of 60-65%. There is trace tricuspid valve regurgitation. Trivial pulmonary valve regurgitation. BP: / HR: Rhythm: MEASUREMENTS (Male / Female) Normal Values Technical Quality: 2D ECHO LV Diastolic Diameter PLAX 4.7 cm 4.2 - 5.9 / 3.9 - 5.3 cm LV Systolic Diameter PLAX 3.3 cm IVS Diastolic Thickness 1.1 cm 0.6 - 1.0 / 0.6 - 0.9 cm LVPW Diastolic Thickness 1.0 cm 0.6 - 1.0 / 0.6 - 0.9 cm LV Relative Wall Thickness 0.4 RV Internal Dim ED PLAX 2.8 cm LVOT Diameter 1.9 cm Aortic Root Diameter 2.3 cm LA Systolic Diameter LX 3.1 cm 3.0 - 4.0 / 2.7 - 3.8 cm M-MODE Aortic Root Diameter MM 2.9 cm LA Systolic Diameter MM 4.0 cm LA Ao Ratio MM 1.4 AV Cusp Separation MM 1.9 cm DOPPLER AV Peak Velocity 165.0 cm/s AV Peak Gradient 10.9 mmHg LVOT Peak Velocity 119.0 cm/s LVOT Peak Gradient 5.7 mmHg AV Area Cont Eq pk 2.0 cm Mitral E Point Velocity 61.2 cm/s Mitral A Point Velocity 35.5 cm/s Mitral E to A Ratio 1.7 LV E' Lateral Velocity 10.0 cm/s Mitral E to LV E' Lateral Ratio 6.1 LV E' Septal Velocity 7.7 cm/s Mitral E to LV E' Septal Ratio 7.9 TR Peak Velocity 205.0 cm/s TR Peak Gradient 16.8 mmHg Right Atrial Pressure 10.0 mmHg Pulmonary Artery Systolic Pressu 26.8 mmHg Right Ventricular Systolic Press 26.8 mmHg PV Peak Velocity 114.0 cm/s PV Peak Gradient 5.2 mmHg FINDINGS LEFT VENTRICLE Normal left ventricular size. Wall thickness is normal. The left ventricular systolic function is normal with an estimated ejection fraction in the range of 60-65%. RIGHT VENTRICLE Grossly normal LEFT ATRIUM The left atrial size is mildly dilated. RIGHT ATRIUM The right atrial size is mildly dilated. ATRIAL SEPTUM Normal atrial septal thickness. MITRAL VALVE Structurally normal mitral valve. No mitral valve regurgitation. No mitral valve stenosis. AORTIC VALVE Trileaflet aortic valve. Calcification of the left coronary cusp. No aortic valve stenosis. No aortic valve regurgitation. TRICUSPID VALVE Structurally normal tricuspid valve. The estimated pulmonary arterial pressure is 27 mmHg. There is trace tricuspid valve regurgitation. PULMONARY VALVE The pulmonary valve is not well visualized. Trivial pulmonary valve regurgitation. PERICARDIUM No pericardial effusion. Pedrito Marmolejo DO (Electronically Signed) Final Date:30 October 2018 01:50
--- NOTE | 2018-10-30 08:53 | P.CONNEU ---
History of Present Illness Service: Neurology Primary Care Provider: Cirilo Sal MD Chief Complaint: decreased reponsiveness History of Present Illness: 57-year-old male admitted for altered mental status. At a libertarian with the spouse states he did not feel well felt like something was coming down over him. Tram weak noticed him to have fluttering of his eyes with some confusion. No tonic-clonic activity no bowel bladder incontinence. He does not remember any focal weakness vision loss vertigo or chest pain he states it lasted about a minute. He states he had some small episodes lasting for a couple seconds prior to this. No further episodes since. Has been feeling well denies any headache any head or neck trauma. No history of concussion INTER[employer] infection febrile seizures or any family history of seizures. Denies any illicit drug use or any sleep deprivation. Mildly hypertensive on admission afebrile blood pressure is improved. Mild bradycardia heart rate 50s. No leukocytosis chemistries overall within normal limits. 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 - Medical History Medical History: Medical History (Last Reviewed 10/28/18 @ 22:59 by SHANKAR Arrington) Appendicitis Arthritis Psoriasiform eczema Psoriasis - Surgical History Surgical History: Surgical History (Last Reviewed 10/28/18 @ 22:59 by SHANKAR Arrington) History of testicular surgery - Tobacco History Second Hand Smoke Exposure: No Smoking Status: Never smoker - Alcohol History How Often Do You Have a Drink Containing Alcohol: 4 or more times a week - Substance Use History Substance History: No History of Abuse - Travel History Recent Travel in the [place] Within the Last 8 Weeks: No Recent Travel Out of the Country Within the Last 8 Weeks: No - Immunization History Tetanus Immunization: Unsure Medications and Allergies Active Medications: Active Medications Benzonatate (Tessalon Perles) 200 mg PO Q8H PRN PRN Reason: COUGH Betamethasone Dipropionate (Diprosone 0.05% Cream) 1 applicatio TOPICAL TID [facility] Last Admin: 10/29/18 17:00 Dose: 1 applicatio Loratadine (Claritin) 10 mg PO DAILY [facility] Last Admin: 10/29/18 16:56 Dose: 10 mg Pt Own Med: (Apremilast 30mg) 0 each PO DAILY TINO Sodium Chloride (Ns Flush) 2 ml IV.FLUSH PRN PRN PRN Reason: FLUSH AFTER USING IV ACCESS Allergies Allergy/AdvReac Type Severity Reaction Status Date / Time ampicillin Allergy Severe HIVES Verified 10/28/18 20:46 penicillin G Allergy Intermediate hives Verified 12/25/17 19:54 Home Medications Medication Instructions Recorded Confirmed Type azithromycin [Zithromax Z-Rick] 250 mg PO DAILY 10/28/18 10/28/18 History benzonatate [Tessalon Perles] 100 mg PO TID PRN 10/28/18 10/28/18 History apremilast [Otezla] 30 mg PO DAILY 10/29/18 10/29/18 History clobetasol 1 applic TOPICAL TID 10/29/18 10/29/18 History Exam Vital signs: Vital Signs 10/29/18 12:05 10/29/18 12:30 10/29/18 16:25 Temperature 98 F Pulse Rate 56 L 55 L 61 Respiratory Rate 16 Blood Pressure 130/70 Pulse Oximetry 10/29/18 16:49 10/29/18 19:42 10/29/18 20:00 Temperature 97.9 F 96.4 F L Pulse Rate 56 L 60 Respiratory Rate 16 20 Blood Pressure 136/69 126/66 Pulse Oximetry 99 98 10/29/18 23:59 10/30/18 04:00 10/30/18 08:00 Temperature 97.7 F 97.8 F 97.9 F Pulse Rate 52 L 56 L 53 L Respiratory Rate 18 16 12 Blood Pressure 142/80 H 140/66 146/76 H Pulse Oximetry 94 L 98 93 L Intake & Output 10/29/18 10/30/18 10/30/18 18:59 06:59 18:59 Intake Total 560 / 560 Output Total 1000 / 1000 Balance -1000 / -1000 560 / 560 Weight 108.2 kg Intake: Oral 560 / 560 Output: Urine 1000 / 1000 Other: # Voids 3 Date of Last Bowel Movement 10/29/18 # Bowel Movements 0 Weight On Admission 228 kg Narrative: GENERAL: in NAD, laying in bed looks well SKIN: Warm and dry. HEAD: Atraumatic. Normocephalic. EYES: Pupils equal and round. No scleral icterus. ENT: No nasal bleeding or discharge. Mucous membranes pink and moist. NECK: Trachea midline. No JVD. CARDIOVASCULAR: Regular rate and rhythm. RESPIRATORY: No accessory muscle use. MUSCULOSKELETAL: Extremities without clubbing, cyanosis, or edema. No obvious deformities. NEUROLOGICAL: Awake and alert. No aphasia, oriented x3 fluent articulate, No facial asymmetry, OU 3-2mm, eomi, VFF, No drift, Motor grossly within normal limits. Five out of 5 muscle strength in the arms and legs. No neglect PSYCHIATRIC: Appropriate mood and affect; insight and judgment normal. - Constitutional no acute distress - Routine HEENT Exam Head: Present: normocephalic Eye: Present: EOMI Results - Labs CBC & Chem 7: 10/28/18 21:38 10/29/18 04:56 Labs: Laboratory Results - last 24 hr 10/29/18 10/29/18 04:56 19:21 Ammonia 23 Vitamin B12 356 Folate 8.4 TSH 3.030 - Imaging Impressions Head MRI 10/29/18 00:00 CONCLUSION: 1. No acute infarct, acute hemorrhage, midline shift or extra-axial fluid collection. 2. Venous angioma within the right frontal subcortical white matter. 3. Mucus retention cyst formation within left maxillary sinus. Review/Management - Diagnosis (1) Spell of altered consciousness Code(s): R40.4 - Transient alteration of awareness Status: Acute Current Visit: Yes (2) Near syncope Code(s): R55 - Syncope and collapse Status: Acute Current Visit: Yes - Review/Management Plan: New onset recurrent episodes with presyncopal symptomatology Etiologies would include cardiac arrhythmia with cerebral hypoperfusion versus new onset seizure eye flutter is somewhat suspicious for seizure activity MRI brain scan normal with the exception of a venous angioma likely congenital Carotid ultrasound negative for any vaso-occlusive disease EEG negative for any seizure activity Recommendation Discussed medications seizures will hold off for now Consider event monitor further cardiac evaluation in versus outpatient If recurrent episode he can get a long-term ambulatory EEG through our office Otherwise can be discharged from neurologic standpoint follow-up in the outpatient setting if any recurrent episode return to the ER/contact our office for urgent follow- up No driving, operating any heavy machinery or dangerous machinery, swimming alone for at least 6 months of being seizure, spell free.
[2018-10-30] MEDS ORDERED: APREMILAST 30 MG PO SCH (09:00)
[2018-10-30] MEDS: Loratadine 10 MG Tablet PO SCH (10:32)
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
[2018-10-30 12:31] VITALS: BP 139/75; PULSE 56; RESP 16; TEMP 98; O2SAT 97
--- NOTE | 2018-10-31 00:47 | ECG ---
Date Performed: 10/28/2018 Time Performed: 21:59:51 PTAGE: 57 years EKG: SINUS BRADYCARDIA BORDERLINE ECG PREVIOUS TRACING : 03/18/2015 01.31 Since the previous tracing, no significant change noted DOCTOR: Pedrito Marmolejo Interpretating Date/Time 10/31/2018 00:46:43
--- NOTE | 2018-10-31 01:12 | ECG ---
Date Performed: 10/29/2018 Time Performed: 06:06:14 PTAGE: 57 years EKG: SINUS BRADYCARDIA NONSPECIFIC T-WAVE ABNORMALITY BORDERLINE ECG PREVIOUS TRACING : 10/28/2018 21.59 Since the previous tracing, no significant change noted DOCTOR: Pedrito Marmolejo Interpretating Date/Time 10/31/2018 01:10:41
== END 2018-10-30 14:28 | disposition home or self-care (01) ==
LOC: NEDA 20:31 → NEPE 20:31 → NEPFCDU 23:45
PROVIDERS: ADMIT Hospitalist; ATTEND Hospitalist
CPT/HCPCS: 70450; 70553; 71010; 71045; 80048; 80053; 81001; 82140; 82550; 82607; 82746; 83735; 84443; 84484; 85025; 86592; 90761; 90774; 90784; 93005; 93306; 93880; 95819; 96361; 96374; 99285; A9585; C8952; G0378; J2405; J7030